=== PATIENT | female | born 1955 | race African-American/Black ===

== ENCOUNTER 2017-02-04 21:01 | Emergency (ER) | payer OTHER ==
[~2017-02-04] VITALS: Ht 160 cm; Wt 84.8 kg
[2017-02-04 21:32] LABS: HEMATOCRIT 34.4 % (36.0-46.0); MCH 28.4 PG (29.0-34.0); MCHC 34.3 G/DL (30.0-36.0); MCV 82.7 FL (83-99); MEAN PLAT.VOLUME 9.1 uM^3 (9.5-12.4); PLATELET COUNT 263 K/uL (156-360); RBC DIS.WIDTH-CV 13.2 % (11.8-14.6); RBC DIS.WIDTH-SD 39.8 % (39-53); RED BLOOD COUNT 4.16 M/uL (3.80-5.20); WHITE BLOOD COUNT 8.4 K/uL (4.1-10.2)
[2017-02-04 21:44] LABS: CHLORIDE 105 mEq/L (99-109); POTASSIUM 3.9 mEq/L (3.7-5.4); SODIUM 140 mEq/L (136-147)
[2017-02-04 21:46] LABS: GLUCOSE 94 mg/dL (70-99)
[2017-02-04 21:47] LABS: ANION GAP 9 MEQ/L (2-14)
[2017-02-04 21:50] LABS: GFR ESTIMATE (CALCULATED) > 59 mL/min/; UREA NITROGEN (BUN) 12 mg/dL (9-23)
[2017-02-04 21:55] LABS: TROP-I INTERPRETATION NEGATIVE; TROPONIN-I < 0.01 ng/mL (0.0-0.30)
[2017-02-04 22:28] LABS: ADD MIUA? NO; BILIRUBIN NEGATIVE; BLOOD NEGATIVE; COLOR YELLOW ((YELLOW)); GLUCOSE (STRIP) NEGATIVE; KETONES NEGATIVE; LEUKOCYTES NEGATIVE; NITRITE NEGATIVE; PROTEIN (STRIP) 30; SPECIFIC GRAVITY 1.011 (1.000-1.030); UROBILINOGEN 0.2 MG/DL (0.2-1.0)
[2017-02-05] MEDS ORDERED: PROVENTIL HFA6.7 GM IH (00:43)
[2017-02-05] MEDS ORDERED: ZOFRAN4 MG PO (00:45)
[2017-02-05 01:03] VITALS: BP 132/64
== END 2017-02-05 01:18 | disposition home or self-care (01) ==
LOC: EME 21:01
PROVIDERS: Emergency Medicine
DX: R06.02 Shortness of breath (principal); R07.9 Chest pain, unspecified; J44.9 Chronic obstructive pulmonary disease, unspecified; F41.9 Anxiety disorder, unspecified; Z80.1 Family history of malignant neoplasm of trachea, bronchus and lung; R11.0 Nausea
CPT/HCPCS: 71020; 71275; 80048; 81003; 83880; 84484; 85027; 85379; 93005; 94640; 99281; 99285; J2060; J2405

== ENCOUNTER 2017-02-17 16:56 | Emergency (ER) | payer SELFPAY ==
[~2017-02-17] VITALS: Ht 160 cm; Wt 84.9 kg
[~2017-02-17 16:56] MED LIST: PROVENTIL HFA6.7 GM IH; ZOFRAN4 MG PO
[2017-02-17] MEDS ORDERED: PERCOCET 5/31 TABLET PO (19:04)
[2017-02-17 19:18] VITALS: BP 138/78
== END 2017-02-17 19:19 | disposition home or self-care (01) ==
LOC: EME 16:56
DX: M79.672 Pain in left foot (principal); M79.671 Pain in right foot; J44.9 Chronic obstructive pulmonary disease, unspecified
CPT/HCPCS: 99281; 99283; J1100

== ENCOUNTER 2017-02-27 16:17 | Emergency (ER) | payer OTHER ==
[~2017-02-27] VITALS: Ht 160 cm; Wt 83.6 kg
[~2017-02-27 16:17] MED LIST changes: +PERCOCET 5/31 TABLET PO
[2017-02-27] MEDS ORDERED: GABAPENTIN300 MG PO (16:39)
[2017-02-27] MEDS ORDERED: ULTRACET1 TABLET PO (16:58)
[2017-02-27 17:03] VITALS: BP 138/103
== END 2017-02-27 17:13 | disposition home or self-care (01) ==
LOC: EME 16:17
DX: G62.9 Polyneuropathy, unspecified (principal); J44.9 Chronic obstructive pulmonary disease, unspecified
CPT/HCPCS: 99281; 99284